=== PATIENT | female | born 1950 | race African-American/Black ===

== ENCOUNTER 2017-04-16 12:36 | Outpatient (CLI) | payer MEDICARE, OTHER ==
[2017-04-16 14:17] LABS: #Eosinphils 0.1 thou/uL (0.0-0.7); #Lymphocytes 2.1 thou/uL (1.20-3.40); #Monocytes 0.3 thou/uL (0.11-0.59); #Neutrophils 1.8 thou/uL (1.40-6.50); %Basophils 0.7 % (0.0-1.0); %Eosinophils 1.2 % (0.0-10.0); %Lymphocytes 48.9 % (21.0-51.0); %Monocytes 7.9 % (0.0-10.0); Hematocrit 42.6 % (36.0-47.0); Mean Platelet Volume 9.8 fL (7.4-10.4); Red Blood Cell (RBC) Count 4.48 mill/uL (4.20-5.40); White Blood Cell (WBC) Count 4.2 thou/uL (4.8-10.8)
[2017-04-16 14:23] LABS: PTT 30.6 SEC (22.9-36.1); Prothrombin Time 12.7 SEC (12.0-14.7)
[2017-04-16 14:24] LABS: Bilirubin Negative (Negative); Blood, Urine Negative (Negative); Glucose, Urine (Dipstick) Negative (Negative); Ketone, Urine Negative (Negative); Nitrite Positive (Negative); Protein, Urine (Dipstick) Negative (Neg-Trace); Urobilinogen 0.2 mg/dL (0.2-1.0)
[2017-04-16 14:36] LABS: Anion Gap 13 mmol/L (10-20); BUN (Urea Nitrogen) 8 mg/dL (9.8-20.1); Calc. Creatinine Clearance 0 mL/min (70-130); Calcium 9.8 mg/dL (7.8-10.44); Carbon Dioxide 30 mmol/L (23-31); Chloride 99 mmol/L (98-107); Estimated GFR-MDRD 83
[2017-04-16 14:37] LABS: Bacteria/HPF 4+ HPF (None Seen); Hyaline Casts/LPF 0-3 HYALINE CAST LPF (0-3 Hyaline); RBC/HPF 0-3 HPF (0-3)
--- NOTE | 2017-04-16 16:10 | RAD ---
CHEST PA AND LATERAL: 04/16/17 HISTORY: 66-year-old female, preoperative evaluation for surgery. COMPARISON: 02/09/11. FINDINGS: Heart size is normal. The lungs are clear. IMPRESSION: No acute intrathoracic disease. Stable from prior study. POS: [facility]
== END 2017-04-16 12:37 | disposition home or self-care (01) ==
LOC: LABBT 12:36
PROVIDERS: ATTEND Orthopaedic Surgery
DX: Z01.818 Encounter for other preprocedural examination (principal); M16.12 Unilateral primary osteoarthritis, left hip
CPT/HCPCS: 71020; 80048; 81001; 85025; 85610; 85730; 86850; 86900; 86901; 87081; 93005; 93010

== ENCOUNTER 2017-06-25 10:44 | Outpatient (CLI) | payer MEDICARE, OTHER ==
--- NOTE | 2017-06-25 11:37 | RAD ---
LEFT KNEE TWO VIEWS: History: Left knee pain. FINDINGS: There is mild joint space loss at the medial compartment with moderate degree of tricompartmental ost eophytosis. No acute fracture, dislocation, or fluid distention of the joint capsules are apparent. O sseous structures are demineralized. IMPRESSION: 1. Mild osteoarthritic changes left knee. 2. Osteoporosis. POS: [facility]
== END 2017-06-25 10:45 | disposition home or self-care (01) ==
LOC: SCSRAD 10:44
PROVIDERS: ATTEND Internal Medicine Rheumatology
DX: M17.12 Unilateral primary osteoarthritis, left knee (principal); M81.0 Age-related osteoporosis without current pathological fracture

== ENCOUNTER 2017-07-08 16:34 | Outpatient (CLI) | payer MEDICARE, OTHER | END 2017-07-08 16:35 | disposition home or self-care (01) | LOC: BICRAD 16:34 | PROVIDERS: ATTEND Internal Medicine | DX: R10.13 Epigastric pain (principal); R11.0 Nausea; R14.0 Abdominal distension (gaseous) | CPT/HCPCS: 36415; 74018; 80053; 83690; 85007; 85027; 85652; 86140 ==

== ENCOUNTER 2018-04-22 16:04 | Outpatient (CLI) | payer MEDICARE, OTHER | END 2018-04-22 16:05 | disposition home or self-care (01) | LOC: BICMAMMO 16:04 | PROVIDERS: ATTEND Internal Medicine | DX: Z12.31 Encounter for screening mammogram for malignant neoplasm of breast (principal); Z80.3 Family history of malignant neoplasm of breast | CPT/HCPCS: 77063; 77067 ==

== ENCOUNTER 2018-08-06 15:18 | Outpatient (CLI) | payer MEDICARE, OTHER ==
--- NOTE | 2018-08-06 17:06 | RAD ---
RIGHT ANKLE THREE VIEWS: 08/06/18 HISTORY: Right ankle pain and edema. FINDINGS: Ankle mortise and talar dome are intact. Prominent soft tissue swelling of the lateral malleolus. No acute fracture, dislocation. Pes planus is apparent on the lateral view, along with degenerative yuriy nges of the hindfoot and midfoot and plantar and Achilles enthesophytes at the posterior aspect of th e calcaneus. IMPRESSION: Prominent soft tissue swelling over the lateral malleolus. Cause is not evident. No acute osseous abn ormalities are demonstrated. Osteoarthritic changes of the ankle and hindfoot. Heel spurs. POS: [facility]
--- NOTE | 2018-08-06 17:11 | RAD ---
RIGHT FOOT THREE VIEWS: 08/06/18 HISTORY: Right foot pain. FINDINGS: Lisfranc joint alignment is anatomic. Prominent pes planus on the lateral view. Osteophytosis and brijesh nt space narrowing throughout the foot. Subchondral sclerosis at the base of the proximal phalanx big toe. Mild hallux valgus. No acute fracture, dislocation, or aggressive osseous erosions are apparent . Plantar and Achilles enthesophytes at the posterior aspect of the calcaneus. IMPRESSION: Osteoarthritic changes throughout the foot. Mild hallux valgus. Pes planus. Heel spurs. POS: [facility]
== END 2018-08-06 15:19 | disposition home or self-care (01) ==
LOC: BICRAD 15:18
PROVIDERS: ATTEND Internal Medicine
DX: M25.571 Pain in right ankle and joints of right foot (principal); I10 Essential (primary) hypertension; I87.2 Venous insufficiency (chronic) (peripheral); R53.83 Other fatigue; M19.071 Primary osteoarthritis, right ankle and foot; M20.11 Hallux valgus (acquired), right foot; M21.41 Flat foot [pes planus] (acquired), right foot; M77.31 Calcaneal spur, right foot
CPT/HCPCS: 36415; 80053; 83520; 84550; 85007; 85027; 85652; 86038; 86140; 86160; 86200; 86225

== ENCOUNTER 2018-12-25 21:01 | Inpatient (IN) | payer MEDICARE, OTHER ==
[2018-12-25 21:40] LABS: Eosinophils 1 % (0-10); Hemoglobin 14.3 g/dL (12.0-16.0); Lymphocytes 31 % (21-51); MDiff Complete? YES; Mean Corpuscular HGB CONC 34.4 g/dL (32.0-36.0); Mean Platelet Volume 14.1 fL (7.4-10.4); Monocytes 11 % (0-10); Neutrophil 57 % (42-75); Platelet Count 152 thou/uL (130-400); Platelet Morphology Comment Appears Adequate; RBC Distribution Width 13.3 % (11.5-14.5); Red Blood Cell (RBC) Count 4.79 mill/uL (4.20-5.40); White Blood Cell (WBC) Count 13.8 thou/uL (4.8-10.8)
--- NOTE | 2018-12-25 21:40 | RAD ---
PORTABLE CHEST ONE VIEW: 12/25/18 at 9:44 p.m. HISTORY: Left sided chest pain. FINDINGS: Comparison is made with exam of 04/09/13. The heart size is borderline. The lungs are expanded without lobar consolidation, pneumothoraces, fra nk pulmonary edema, or pleural effusions. There are degenerative changes in the spine. IMPRESSION: No acute process. POS: [facility]
[2018-12-25 21:43] LABS: ALT (SGPT) 22 U/L (8-55); AST (SGOT) 17 U/L (5-34); Alkaline Phosphatase 94 U/L (40-150); Anion Gap 18 mmol/L (10-20); BUN (Urea Nitrogen) 11 mg/dL (9.8-20.1); Bilirubin, Total 0.4 mg/dL (0.2-1.2); CK (CPK) 96 U/L (29-168); Calc. Creatinine Clearance 0 mL/min (70-130); Calcium 9.7 mg/dL (7.8-10.44); Carbon Dioxide 24 mmol/L (23-31); Chloride 98 mmol/L (98-107); Estimated GFR-MDRD 53; Globulin 4.2 g/dL (2.4-3.5); Glucose 121 mg/dL (80-115); Lipase 11 U/L (8-78); Potassium 3.9 mmol/L (3.5-5.1); Protein, Total 8.2 g/dL (6.0-8.3); Sodium 136 mmol/L (136-145)
[2018-12-25] MEDS ORDERED: Acetaminophen 500 MG TAB ONE (21:54)
[2018-12-25] MEDS ORDERED: Nitroglycerin 2% Ointment 1 INCH/1 GM Packet ONE (21:54)
[2018-12-25] MEDS ORDERED: Aspirin Chewable 81 MG TAB ONE (21:54)
[2018-12-25] MEDS ORDERED: Ondansetron PF 4 MG/2 ML Vial ONE (21:56)
[2018-12-25] MEDS ORDERED: Famotidine 20 MG TAB ONE (21:56)
[2018-12-25 22:12] LABS: Bilirubin Small (Negative); Blood, Urine Small (Negative); Clarity Cloudy (Clear); Glucose, Urine (Dipstick) Negative (Negative); Leukocyte Trace (Negative); Nitrite Negative (Negative); Protein, Urine (Dipstick) 100 mg/dL (Neg-Trace); Urobilinogen 0.2 mg/dL (Less than 2)
[2018-12-25 22:20] LABS: Bacteria/HPF 1+ HPF (None Seen); Mucous/LPF 2+ LPF (<2+); RBC/HPF 0-3 HPF (0-3); WBC/HPF 0-3 HPF (0-3)
[2018-12-25] MEDS ORDERED: Colchicine 0.6 MG TAB ONE (22:34)
[2018-12-26 00:45] LABS: Troponin I Less than 0.010 ng/mL (< 0.028)
[2018-12-26] MEDS ORDERED: Bacteriostatic Water 30 ML VIAL FS PRN (01:39)
[2018-12-26] MEDS ORDERED: methylPREDNISolone Sod Succ/PF 125 MG/2 ML VIAL IVP SCH (01:45)
[2018-12-26] MEDS ORDERED: Ondansetron ODT 4 MG TAB PO PRN (01:53)
[2018-12-26] MEDS ORDERED: Ondansetron PF 4 MG/2 ML Vial IVP PRN (01:53)
[2018-12-26] MEDS ORDERED: Buprenorphine Hcl [Belbuca] 75 MCG FS PRN (02:15)
[2018-12-26 05:09] LABS: Troponin I Less than 0.010 ng/mL (< 0.028)
[2018-12-26] MEDS: methylPREDNISolone Sod Succ 40 MG VIAL IVP SCH ×3 (05:53→18:21)
--- NOTE | 2018-12-26 07:48 | HP ---
PRIMARY CARE PHYSICIAN: Afsaneh Lackey MD. CHIEF COMPLAINT: Fever, chills, chest pain, and joint pain. HISTORY OF PRESENT ILLNESS: Ms. Londono is a pleasant 68-year-old female with past medical history of familial Mediterranean fever, hypertension, hyperlipidemia, rheumatoid arthritis, giant cell arteritis, iritis, pulmonary valve stenosis, status post replacement, who had presented to [facility] after being transferred from [facility] earlier today. She states that over the last 2 days, she has noticed a worsening fever along with some chest pain that is worse with deep breathing, some abdominal pain, nausea without vomiting and joint pain, which was localized to her wrists and knees. She states that she has been following with a truck railroad and bus motor mechanic in the area, Dr. Iban Gonzalez, and she has been taking her oral colchicine. However, as of late, this has not been working as well and the patient has had more flares. Upon arriving to [facility] ER, she was noted to have a fever as high as 103. She was given colchicine, aspirin, Tylenol, Levaquin and Zofran for her symptoms. Due to her chest pain, she was also given nitroglycerin and Pepcid. However, these did not seem to help. She was later transferred to [facility]. Upon arriving to the room, she was seen and examined. She had reported fever, chills, some mild chest pain, and some mild nausea without vomiting. She had denied any headache, blurred vision, dizziness, any shortness of breath, any change in stool or any swelling down her upper and lower extremities. She underwent a portable chest x-ray, which was found to be normal. White count was slightly elevated at 13.8, creatinine was bumped at 1.21 with an estimated GFR of 53. Lactic acid was normal at 1.7. Troponin was normal x2. Lipase was normal at 11 and TSH was also normal at 1.7. Urinalysis showed trace leukocyte esterase, 1+ bacteria, 2+ mucus and 7-10 squamous epithelial cells. However, patient denied any sort of urinary symptoms at this time. Urine was sent for culture and is pending at this time, blood cultures were also obtained. Third set of troponin is pending. She had remained in normal sinus rhythm on the monitor. REVIEW OF SYSTEMS: All other systems reviewed and found to be negative unless mentioned in HPI. PAST MEDICAL HISTORY: Hypertension, hyperlipidemia, familial Mediterranean fever, pulmonary valve stenosis, hiatal hernia, rheumatoid arthritis, osteoarthritis, history of giant cell arteritis and history of iritis. PAST SURGICAL HISTORY: Left hip replacement, right knee replacement, cholecystectomy, valvuloplasty for pulmonary valve stenosis. PSYCHIATRIC HISTORY: None. SOCIAL HISTORY: The patient denies any alcohol, tobacco, or illicit drug use. KNOWN ALLERGIES: No known drug allergies. CURRENT HOME MEDICATIONS: 1. Cimzia 40 mg subcutaneous q.14 days. 2. Nexium 40 mg p.o. b.i.d. 3. Potassium chloride 10 mEq p.o. daily. 4. Baclofen 10 mg oral b.i.d. 5. Buprenorphine 75 mcg as needed for pain. 6. Candesartan 32 mg oral daily. 7. Colchicine 0.6 mg p.o. b.i.d. 8. Diltiazem 240 mg p.o. daily. 9. Duloxetine 60 mg p.o. q.p.m. 10. Furosemide 40 mg p.o. daily. 11. Metoprolol 200 mg p.o. at bedtime. 12. Modafinil 200 mg p.o. one tablet in the morning and one tablet at noon. 13. Rosuvastatin 20 mg p.o. daily. 14. Tramadol 200 mg p.o. at bedtime. 15. Trazodone 50 mg p.o. at bedtime. PHYSICAL EXAMINATION: VITAL SIGNS: BP 132/64, pulse 69, respirations 18, temperature 98.5 degrees Fahrenheit, O2 saturations 98% on room air. GENERAL: The patient is awake, alert, and oriented x3. She is currently lying comfortably in bed and in no acute distress. HEENT: Atraumatic, normocephalic. Pupils are round and reactive to light. Extraocular muscles intact. Moist mucous membranes noted. NECK: Soft and supple. Trachea midline. CARDIOVASCULAR: Positive S1 and S2. Regular rate and rhythm. No murmur auscultated. RESPIRATORY: Clear to auscultation bilaterally. No wheezes, rales, or rhonchi. ABDOMEN: Soft, nontender. Bowel sounds present. MUSCULOSKELETAL: Strength 5+ bilaterally in upper and lower extremities. Moves all extremities equal. She does have possible slight swelling and erythema noted in bilateral wrists and right knee with some mild tenderness to palpation, normal range of motion. NEUROLOGIC: Cranial nerves 2 through 12 grossly intact. No focal deficits noted. Speech intact. Normal gait not assessed. SKIN: Warm, dry, and intact. Further changes noted above. PSYCHIATRIC: Good mood and affect. LABORATORY DATA: WBC 13.8, RBC 4.79, hemoglobin 14.3, hematocrit 41.7, platelets 152. Sodium 136, potassium 3.9, anion gap 18, BUN 11, creatinine 1.21, estimated GFR 53. Lactic acid 1.7. Troponin less than 0.010 x2. Lipase 11. TSH 1.7. Urinalysis shows trace leukocyte esterase, 7-10 squamous epithelial cells, 1+ bacteria, 2+ mucus, trace ketones, small blood, small bilirubin, 100 protein, otherwise unremarkable. DIAGNOSTIC IMAGING: Portable chest x-ray shows no acute process. ASSESSMENT AND PLAN: 1. Acute exacerbation of familial Mediterranean fever. The patient will be resumed on her home regimen at this time and we will add IV Solu-Medrol for further coverage. She also be treated with oral Tylenol as needed for fevers. She will likely need to follow up with her primary truck railroad and bus motor mechanic, Dr. Gonzalez upon discharge. 2. History of hypertension. The patient will be continued on her home regimen. 3. Hyperlipidemia. Continue home statin. 4. Leukocytosis. This could possibly be secondary to a reactive response. Urinalysis showed trace leukocyte esterase, 1+ bacteria, however, there were 7-10 squamous epithelial cells and patient is currently asymptomatic for any UTI symptoms at this time. Blood and urine cultures were sent and pending at this time. 5. Deep venous thrombosis and gastrointestinal prophylaxis. 6. Code status, full code. 7. Surrogate decision maker is her spouse, Ja. DISPOSITION: The patient will be placed on the observation unit to be monitored on telemetry. Her blood pressure and vital signs including temperatures will be monitored closely throughout hospital course. She will be started on IV Solu-Medrol and she will likely be transitioned to an oral prednisone taper and discharged home in the next 1 to 2 days to follow up with her primary truck railroad and bus motor mechanic. Job ID: [id number]
[2018-12-26] MEDS ORDERED: Rosuvastatin 20 MG TAB PO SCH (09:00)
[2018-12-26] MEDS: Baclofen 10 MG TAB PO SCH ×2 (09:06→20:34)
[2018-12-26] MEDS: Colchicine 0.6 MG TAB PO SCH ×2 (09:06→20:35)
[2018-12-26] MEDS: Modafinil 100 MG TAB PO SCH ×2 (09:06→12:38)
[2018-12-26] MEDS: Furosemide 40 MG TAB PO SCH (09:06)
[2018-12-26] MEDS: Enoxaparin Sodium 40 MG/0.4 ML SYRINGE SC SCH (09:08)
[2018-12-26] MEDS: Acetaminophen 325 MG TAB PO PRN ×2 (09:16→18:21)
[2018-12-26] MEDS ORDERED: ISOVUE-370 76%-LOCM 1 ML ONE (11:45)
--- NOTE | 2018-12-26 14:08 | PDOC.PN ---
- Subjective Encounter Start Date: 12/26/18 Encounter Start Time: 09:15 Subjective: feels better, no fever this am -: no abd pain or chest pain -: is eating breakfast - Objective Resuscitation Status - Order Detail: 12/26/18 01:53 Resuscitation Status Routine Co-Sign Provider: Resuscitation Status: FULL: Full Resuscitation MAR Reviewed: Yes Vital Signs & Weight: Vital Signs (12 hours) Temp Pulse Resp BP BP Pulse Ox 12/26/18 12:11 97.8 F 81 20 102/59 L 94 L 12/26/18 09:05 79 12/26/18 07:50 98.0 F 79 16 109/57 L 96 12/26/18 05:53 97.8 F 68 18 116/54 L 96 Weight Weight 212 lb 11.2 oz Result Diagrams: 12/25/18 21:17 12/25/18 21:17 Phys Exam - Physical Examination HEENT: PERRLA, moist MMs Neck: no JVD, supple Respiratory: no wheezing, no rales Cardiovascular: RRR, no significant murmur Gastrointestinal: soft, non-tender, positive bowel sounds Musculoskeletal: no edema, pulses present Neurological: non-focal, moves all 4 limbs Psychiatric: normal affect, A&O x 3 Dx/Plan (1) Chest pain Code(s): R07.9 - CHEST PAIN, UNSPECIFIED Status: Acute Qualifiers: Chest pain type: chest pain on breathing Qualified Code(s): R07.1 - Chest pain on breathing; R07.81 - Pleurodynia (2) h/o pulmonary valve valvuloplasty Status: Chronic (3) Dyslipidemia Code(s): E78.5 - HYPERLIPIDEMIA, UNSPECIFIED Status: Chronic (4) Obesity (BMI 30.0-34.9) Code(s): E66.9 - OBESITY, UNSPECIFIED Status: Chronic (5) HTN (hypertension) Code(s): I10 - ESSENTIAL (PRIMARY) HYPERTENSION Status: Chronic Qualifiers: Hypertension type: essential hypertension Qualified Code(s): I10 - Essential (primary) hypertension (6) Mediterranean fever Code(s): A23.9 - BRUCELLOSIS, UNSPECIFIED Status: Chronic Comment: Cont colchicine (7) SARBJIT (obstructive sleep apnea) Code(s): G47.33 - OBSTRUCTIVE SLEEP APNEA (ADULT) (PEDIATRIC) Status: Chronic Comment: nocturnal CPAP - Plan hemostable -: prelim blood and urine cs are -ve -: is on steroids now, colchicine, baclofen -: toprol high dose, candesartan, cardizem cd, lasix, crestor -: to ambulate in hallway as tolerated * . CT chest to r/o infiltrate dc plan in 24hrs. Review of Systems - Medications/Allergies Allergies/Adverse Reactions: Allergies Allergy/AdvReac Type Severity Reaction Status Date / Time No Known Allergies Allergy Verified 12/26/18 00:50 Medications: Current Medications Acetaminophen (Tylenol) 650 mg PO Q4H PRN PRN Reason: Headache/Fever/Mild Pain (1-3) Last Admin: 12/26/18 09:16 Dose: 650 mg Baclofen (Lioresal) 10 mg PO BID [facility] [place] Last Admin: 12/26/18 09:06 Dose: 10 mg Candesartan Cilexetil (Atacand) 32 mg PO DAILY [facility] Last Admin: 12/26/18 09:07 Dose: Not Given Colchicine (Colchicine) 0.6 mg PO BID [facility] Last Admin: 12/26/18 09:06 Dose: 0.6 mg Diltiazem HCl (Cardizem Cd) 240 mg PO DAILY [facility] Last Admin: 12/26/18 09:05 Dose: 240 mg Duloxetine HCl (Cymbalta) 60 mg PO QPM [facility] Enoxaparin Sodium (Lovenox) 40 mg SC 0900 [facility] Last Admin: 12/26/18 09:08 Dose: 40 mg Furosemide (Lasix) 40 mg PO DAILY [facility] Last Admin: 12/26/18 09:06 Dose: Not Given Methylprednisolone Sodium Succinate (Solu-Medrol) 40 mg IVP Q6HR [facility] Last Admin: 12/26/18 12:38 Dose: 40 mg Metoprolol Succinate (Toprol Xl) 200 mg PO HS [facility] Modafinil (Provigil) 200 mg PO 0900,1200 [facility] [place] Last Admin: 12/26/18 12:38 Dose: Not Given Ondansetron HCl (Zofran Odt) 4 mg PO Q6H PRN PRN Reason: Nausea/Vomiting Ondansetron HCl (Zofran) 4 mg IVP Q6H PRN PRN Reason: Nausea/Vomiting Buprenorphine Hcl [ (Belbuca] 75 Mcg) 0 each FS ASDIR PRN PRN Reason: Pain Tramadol Hcl [ Tramadol Hcl Er] 200 Mg 0 each PO HS [facility] Rosuvastatin Calcium (Crestor) 20 mg PO DAILY [facility] Last Admin: 12/26/18 09:05 Dose: 20 mg Sterile Water (Bacteriostatic Water) 1 ml FS PRN PRN PRN Reason: RECONSTITUTION Trazodone HCl (Desyrel) 50 mg PO HS [facility]
--- NOTE | 2018-12-26 15:50 | CT ---
CT angiogram of chest performed with intravenous contrast enhancement 3-D reconstructions HISTORY: Shortness of breath. COMPARISON: None. FINDINGS: There is a lingular infiltrate present. The right lung is clear. There is a small pleural-b ased 6 mm nodule within the right upper lobe which could represent a small pleural-based node.. No significant mediastinal or hilar adenopathy. The thoracic aorta is normal in caliber. The pulmonar y arteries are well-opacified there is no CT evidence for pulmonary embolus. Visualized liver parenchyma shows no focal findings. IMPRESSION: Lingular pneumonia. No evidence of pulmonary embolus.
[2018-12-26] MEDS: traZODone HCl 50 MG TAB PO SCH (20:35)
[2018-12-26] MEDS: DULoxetine 60 MG CAP PO SCH (20:35)
[2018-12-26] MEDS ORDERED: Tramadol Hcl [Tramadol Hcl Er] 200 MG PO SCH (21:00)
[2018-12-27] MEDS: methylPREDNISolone Sod Succ 40 MG VIAL IVP SCH ×2 (06:22)
[2018-12-27] MEDS: Baclofen 10 MG TAB PO SCH ×2 (08:45→20:51)
[2018-12-27] MEDS: Colchicine 0.6 MG TAB PO SCH ×2 (08:46→20:51)
[2018-12-27] MEDS: Furosemide 40 MG TAB PO SCH (08:46)
[2018-12-27] MEDS: Modafinil 100 MG TAB PO SCH ×2 (08:46→11:30)
[2018-12-27] MEDS: Enoxaparin Sodium 40 MG/0.4 ML SYRINGE SC SCH (08:46)
--- NOTE | 2018-12-27 12:39 | PDOC.PN ---
- Subjective Encounter Start Date: 12/27/18 Encounter Start Time: 09:00 Subjective: had sob overnight, none at present -: is amb in room -: no chest pain or palp - Objective Resuscitation Status - Order Detail: 12/26/18 01:53 Resuscitation Status Routine Co-Sign Provider: Resuscitation Status: FULL: Full Resuscitation MAR Reviewed: Yes Vital Signs & Weight: Vital Signs (12 hours) Temp Pulse Resp BP BP Pulse Ox 12/27/18 08:46 68 116/57 L 12/27/18 07:19 97.6 F 68 16 116/57 L 97 12/27/18 04:09 97.9 F 67 14 106/54 L 94 L Weight Weight 212 lb 11.2 oz I&O: 12/26/18 12/27/18 12/28/18 06:59 06:59 06:59 Intake Total 1460 400 Output Total 900 Balance 560 400 Result Diagrams: 12/25/18 21:17 12/25/18 21:17 Phys Exam - Physical Examination HEENT: PERRLA, moist MMs Neck: no JVD, supple Respiratory: no wheezing, no rales Cardiovascular: RRR, no significant murmur Gastrointestinal: soft, non-tender, positive bowel sounds Musculoskeletal: no edema, pulses present Neurological: non-focal, moves all 4 limbs Psychiatric: normal affect, A&O x 3 Dx/Plan (1) PNA (pneumonia) Code(s): J18.9 - PNEUMONIA, UNSPECIFIED ORGANISM Status: Acute Qualifiers: Pneumonia type: due to unspecified organism Laterality: left Lung location: upper lobe of lung Qualified Code(s): J18.1 - Lobar pneumonia, unspecified organism (2) Chest pain Code(s): R07.9 - CHEST PAIN, UNSPECIFIED Status: Acute Qualifiers: Chest pain type: chest pain on breathing Qualified Code(s): R07.1 - Chest pain on breathing; R07.81 - Pleurodynia (3) h/o pulmonary valve valvuloplasty Status: Chronic (4) Dyslipidemia Code(s): E78.5 - HYPERLIPIDEMIA, UNSPECIFIED Status: Chronic (5) Obesity (BMI 30.0-34.9) Code(s): E66.9 - OBESITY, UNSPECIFIED Status: Chronic (6) HTN (hypertension) Code(s): I10 - ESSENTIAL (PRIMARY) HYPERTENSION Status: Chronic Qualifiers: Hypertension type: essential hypertension Qualified Code(s): I10 - Essential (primary) hypertension (7) Mediterranean fever Code(s): A23.9 - BRUCELLOSIS, UNSPECIFIED Status: Chronic Comment: Cont colchicine (8) SARBJIT (obstructive sleep apnea) Code(s): G47.33 - OBSTRUCTIVE SLEEP APNEA (ADULT) (PEDIATRIC) Status: Chronic Comment: nocturnal CPAP - Plan levaquin, nebs, dc steroids -: d/w -: continue toprol, cardizem, lasix, candesartan, crestor -: may dc baclofen, continue cymbalta, modafinil -: hemostable * . Review of Systems - Medications/Allergies Allergies/Adverse Reactions: Allergies Allergy/AdvReac Type Severity Reaction Status Date / Time No Known Allergies Allergy Verified 12/26/18 00:50 Medications: Current Medications Acetaminophen (Tylenol) 650 mg PO Q4H PRN PRN Reason: Headache/Fever/Mild Pain (1-3) Last Admin: 12/26/18 18:21 Dose: 650 mg Albuterol/Ipratropium (Duoneb) 3 ml NEB [id number] PRN PRN Reason: SOB &/or Wheezing Baclofen (Lioresal) 10 mg PO BID [facility] Last Admin: 12/27/18 08:45 Dose: 10 mg Candesartan Cilexetil (Atacand) 32 mg PO DAILY [facility] Last Admin: 12/27/18 08:45 Dose: 32 mg Colchicine (Colchicine) 0.6 mg PO BID [facility] Last Admin: 12/27/18 08:46 Dose: 0.6 mg Diltiazem HCl (Cardizem Cd) 240 mg PO DAILY [facility] Last Admin: 12/27/18 08:46 Dose: 240 mg Duloxetine HCl (Cymbalta) 60 mg PO QPM [facility] Last Admin: 12/26/18 20:35 Dose: 60 mg Enoxaparin Sodium (Lovenox) 40 mg SC 0900 [facility] Last Admin: 12/27/18 08:46 Dose: 40 mg Furosemide (Lasix) 40 mg PO DAILY [facility] Last Admin: 12/27/18 08:46 Dose: 40 mg Levofloxacin 500 mg/ Device 100 mls @ 100 mls/hr IVPB Q24HR [facility] Last Admin: 12/27/18 08:55 Dose: 100 mls Metoprolol Succinate (Toprol Xl) 200 mg PO HS [facility] Last Admin: 12/26/18 20:34 Dose: 200 mg Modafinil (Provigil) 200 mg PO 0900,1200 [facility] Last Admin: 12/27/18 11:30 Dose: 200 mg Ondansetron HCl (Zofran Odt) 4 mg PO Q6H PRN PRN Reason: Nausea/Vomiting Ondansetron HCl (Zofran) 4 mg IVP Q6H PRN PRN Reason: Nausea/Vomiting Last Admin: 12/27/18 11:31 Dose: 4 mg Pantoprazole Sodium (Protonix) 40 mg PO BID [facility] Last Admin: 12/27/18 08:45 Dose: Not Given Buprenorphine Hcl [ (Belbuca] 75 Mcg) 0 each FS ASDIR PRN PRN Reason: Pain Tramadol Hcl [ Tramadol Hcl Er] 200 Mg 0 each PO HS [facility] Rosuvastatin Calcium (Crestor) 20 mg PO HS [facility] Sodium Chloride (Flush - Normal Saline) 10 ml IVF Q12HR [facility] Last Admin: 12/27/18 08:46 Dose: 10 ml Sodium Chloride (Flush - Normal Saline) 10 ml IVF PRN PRN PRN Reason: Saline Flush Sterile Water (Bacteriostatic Water) 1 ml FS PRN PRN PRN Reason: RECONSTITUTION Trazodone HCl (Desyrel) 50 mg PO HS [facility] Last Admin: 12/26/18 20:35 Dose: 50 mg
--- NOTE | 2018-12-27 18:51 | CON ---
DATE OF CONSULTATION: 12/27/2018 CONSULTING PHYSICIAN: Dr. Xiao. REASON FOR CONSULTATION: Pneumonia. HISTORY OF PRESENT ILLNESS: Ms. Londono is a 68-year-old female, who presented to the hospital with a 3-day history of chest pain, fevers, difficulty breathing, and some abdominal pain. She actually carries a diagnosis of familial Mediterranean fever and takes colchicine for that. On this particular admission, she had a fever as high as 103. She had a CT of the chest demonstrating a peripheral lingular infiltrate on the left. She has been started on antibiotics and says she feels somewhat better. The fever has dissipated. PAST MEDICAL HISTORY: 1. Hypertension. 2. Hyperlipidemia. 3. Familial Mediterranean fever. 4. Pulmonary valve stenosis. 5. Hiatal hernia. 6. Rheumatoid arthritis. 7. Osteoarthritis. 8. Giant cell arteritis. 9. Iritis. PAST SURGICAL HISTORY: 1. Left hip replacement. 2. Knee replacement. 3. Cholecystectomy. 4. Valvuloplasty for pulmonary valve stenosis. SOCIAL HISTORY: Nonsmoker. Does not consume alcohol. Does not use illicit drugs. ALLERGIES: NONE. MEDICATIONS: Medications prior to admission: 1. Cimzia 40 mg subcutaneously every 14 days. 2. Nexium 40 mg b.i.d. 3. Potassium chloride 10 mEq daily. 4. Baclofen 10 mg b.i.d. 5. Buprenorphine 75 mcg as needed for pain. 6. Candesartan 32 mg daily. 7. Colchicine 0.6 mg b.i.d. 8. Diltiazem 240 mg daily. 9. Duloxetine 60 mg daily. 10. Furosemide 40 mg daily. 11. Metoprolol 200 mg at night. 12. Modafinil 200 mg in the morning and one at noon. 13. Rosuvastatin 20 mg daily. 14. Tramadol 200 mg nightly. 15. Trazodone 50 mg daily. Current inpatient medications were reviewed, see chart. Additionally, she has been placed on Levaquin. REVIEW OF SYSTEMS: Remarkable for the chest pain, myalgias, and joint swelling in the hands. Otherwise, negative. PHYSICAL EXAMINATION: VITAL SIGNS: Temperature 97.6, pulse 68, blood pressure 116/57, O2 saturation 97% on room air. GENERAL: She is awake, alert, and in no distress. HEENT: Unremarkable. NECK: No adenopathy, JVD, or bruits. LUNGS: Clear without wheezing or rhonchi. CARDIAC: S1 and S2, regular without audible murmur. ABDOMEN: Soft. Slightly tender to deep palpation. EXTREMITIES: She has some swelling over her dorsum of right hand. LABORATORY DATA: White blood cell count 13.8, hematocrit 41, platelet count 152. Sodium 136, BUN 11, creatinine 1.2, glucose 121. I reviewed her CT scan. ASSESSMENT: Clinical picture is probably consistent with familial Mediterranean fever with exacerbation. The x-ray could be abnormal because of that or could be abnormal because of pneumonia, so it is reasonable to go ahead and cover her with antibiotics. RECOMMENDATIONS: In addition to the antibiotics and the colchicine, I would encourage her to get up and move around. I do not think she is that far from hospital discharge. I would complete a total of 7 days of antibiotics. Job ID: [id number]
[2018-12-27] MEDS: DULoxetine 60 MG CAP PO SCH (20:51)
[2018-12-27] MEDS: Rosuvastatin 20 MG TAB PO SCH (20:51)
[2018-12-27] MEDS: traZODone HCl 50 MG TAB PO SCH (20:51)
[2018-12-28] MEDS: Colchicine 0.6 MG TAB PO SCH ×2 (07:47→20:22)
[2018-12-28] MEDS: Enoxaparin Sodium 40 MG/0.4 ML SYRINGE SC SCH (07:47)
[2018-12-28] MEDS: Baclofen 10 MG TAB PO SCH ×2 (07:47→20:22)
[2018-12-28] MEDS: Furosemide 40 MG TAB PO SCH (07:47)
[2018-12-28] MEDS: Modafinil 100 MG TAB PO SCH ×2 (09:53→11:35)
[2018-12-28 10:38] LABS: Hemoglobin 13.7 g/dL (12.0-16.0); Mean Corpuscular HGB CONC 33.4 g/dL (32.0-36.0); Mean Corpuscular Hemoglobin 30.8 pg (27.0-31.0); Mean Corpuscular Volume 92.3 fL (78.0-98.0); Mean Platelet Volume 8.9 fL (7.4-10.4); Platelet Count 227 thou/uL (130-400); RBC Distribution Width 13.4 % (11.5-14.5); Red Blood Cell (RBC) Count 4.46 mill/uL (4.20-5.40); White Blood Cell (WBC) Count 18.2 thou/uL (4.8-10.8)
[2018-12-28 11:22] LABS: Lymphocytes 4 % (21-51); MDiff Complete? YES; Monocytes 11 % (0-10); Neutrophil 83 % (42-75); Platelet Morphology Comment Appears Adequate; RBC Morphology Normal; Reactive Lymphocytes 2 % (0-10)
[2018-12-28 11:24] LABS: Anion Gap 20 mmol/L (10-20); BUN (Urea Nitrogen) 29 mg/dL (9.8-20.1); Calc. Creatinine Clearance 68 mL/min (70-130); Calcium 9.3 mg/dL (7.8-10.44); Carbon Dioxide 19 mmol/L (23-31); Chloride 105 mmol/L (98-107); Estimated GFR-MDRD 54; Glucose 115 mg/dL (80-115); HIV (1/2) Antibody/Antigen Non-Reactive (NonReactive); HIV 1/2 INDEX 0.09 S/CO (<1.00); Potassium 4.1 mmol/L (3.5-5.1); Sodium 140 mmol/L (136-145)
--- NOTE | 2018-12-28 11:34 | PDOC.PN ---
- Subjective Encounter Start Date: 12/28/18 Encounter Start Time: 10:20 Subjective: sob is better, is able to amb in room -: has had off and on candidiasis, recently completed fluconazole course -: says fluconazole has not helped much, is asking if her pna is fungal? - Objective Resuscitation Status - Order Detail: 12/26/18 01:53 Resuscitation Status Routine Co-Sign Provider: Resuscitation Status: FULL: Full Resuscitation MAR Reviewed: Yes Vital Signs & Weight: Vital Signs (12 hours) Temp Pulse Resp BP Pulse Ox 12/28/18 09:53 69 12/28/18 08:00 97 12/28/18 07:09 97.6 F 69 17 115/65 93 L 12/28/18 05:10 98.1 F 73 18 107/62 97 Weight Weight 212 lb 11.2 oz I&O: 12/27/18 12/28/18 12/29/18 06:59 06:59 06:59 Intake Total 1460 940 240 Output Total 900 Balance 560 940 240 Result Diagrams: 12/28/18 10:20 12/28/18 10:20 Phys Exam - Physical Examination HEENT: PERRLA, moist MMs Neck: no JVD, supple Respiratory: no wheezing, no rales Cardiovascular: RRR, no significant murmur Gastrointestinal: soft, non-tender, positive bowel sounds Musculoskeletal: no edema, pulses present Neurological: non-focal, moves all 4 limbs Psychiatric: normal affect, A&O x 3 Dx/Plan (1) PNA (pneumonia) Code(s): J18.9 - PNEUMONIA, UNSPECIFIED ORGANISM Status: Acute Qualifiers: Pneumonia type: due to unspecified organism Laterality: left Lung location: upper lobe of lung Qualified Code(s): J18.1 - Lobar pneumonia, unspecified organism (2) Chest pain Code(s): R07.9 - CHEST PAIN, UNSPECIFIED Status: Resolved Qualifiers: Chest pain type: chest pain on breathing Qualified Code(s): R07.1 - Chest pain on breathing; R07.81 - Pleurodynia (3) h/o pulmonary valve valvuloplasty Status: Chronic (4) Dyslipidemia Code(s): E78.5 - HYPERLIPIDEMIA, UNSPECIFIED Status: Chronic (5) Obesity (BMI 30.0-34.9) Code(s): E66.9 - OBESITY, UNSPECIFIED Status: Chronic (6) HTN (hypertension) Code(s): I10 - ESSENTIAL (PRIMARY) HYPERTENSION Status: Chronic Qualifiers: Hypertension type: essential hypertension Qualified Code(s): I10 - Essential (primary) hypertension (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 -: ID consult if ok with , await his opinion if pna is related to it -: ?bronch to confirm if she has lower airway fungal inf -: has tried fluconazole before and says its not worked for her * . HIV is -ve continue high dose toprol xl, cardizem cd, candesartan, crestor, cymbalta, baclofen Nebs qid. TO ambulate in hallway as tolerated She might need to clean her cpap thoroughly in view of thrush/airway? Review of Systems - Medications/Allergies Allergies/Adverse Reactions: Allergies Allergy/AdvReac Type Severity Reaction Status Date / Time No Known Allergies Allergy Verified 12/26/18 00:50 Medications: Current Medications Acetaminophen (Tylenol) 650 mg PO Q4H PRN PRN Reason: Headache/Fever/Mild Pain (1-3) Last Admin: 12/26/18 18:21 Dose: 650 mg Albuterol/Ipratropium (Duoneb) 3 ml NEB Q6H PRN PRN Reason: SOB &/or Wheezing Baclofen (Lioresal) 10 mg PO BID [facility] Last Admin: 12/28/18 07:47 Dose: 10 mg Candesartan Cilexetil (Atacand) 32 mg PO DAILY [facility] Last Admin: 12/28/18 09:53 Dose: 32 mg Colchicine (Colchicine) 0.6 mg PO BID [facility] Last Admin: 12/28/18 07:47 Dose: 0.6 mg Diltiazem HCl (Cardizem Cd) 240 mg PO DAILY [facility] Last Admin: 12/28/18 09:53 Dose: 240 mg Duloxetine HCl (Cymbalta) 60 mg PO QPM [facility] Last Admin: 12/27/18 20:51 Dose: 60 mg Enoxaparin Sodium (Lovenox) 40 mg SC 0900 [facility] Last Admin: 12/28/18 07:47 Dose: 40 mg Fluconazole (Diflucan) 200 mg PO DAILY [facility] Stop: 12/31/18 12:01 Furosemide (Lasix) 40 mg PO DAILY [facility] Last Admin: 12/28/18 07:47 Dose: 40 mg Levofloxacin (Levaquin) 500 mg PO 0600 [facility] Metoprolol Succinate (Toprol Xl) 200 mg PO HS [facility] Last Admin: 12/27/18 20:51 Dose: 200 mg Modafinil (Provigil) 200 mg PO 0900,1200 [facility] Last Admin: 12/28/18 09:53 Dose: 200 mg Ondansetron HCl (Zofran Odt) 4 mg PO Q6H PRN PRN Reason: Nausea/Vomiting Ondansetron HCl (Zofran) 4 mg IVP Q6H PRN PRN Reason: Nausea/Vomiting Last Admin: 12/27/18 11:31 Dose: 4 mg Pantoprazole Sodium (Protonix) 40 mg PO BID [facility] Last Admin: 12/28/18 07:47 Dose: 40 mg Buprenorphine Hcl [ (Belbuca] 75 Mcg) 0 each FS ASDIR PRN PRN Reason: Pain Tramadol Hcl [ Tramadol Hcl Er] 200 Mg 0 each PO HS [facility] Rosuvastatin Calcium (Crestor) 20 mg PO HS [facility] Last Admin: 12/27/18 20:51 Dose: 20 mg Sodium Chloride (Flush - Normal Saline) 10 ml IVF Q12HR [facility] Last Admin: 12/28/18 07:48 Dose: 10 ml Sodium Chloride (Flush - Normal Saline) 10 ml IVF PRN PRN PRN Reason: Saline Flush Sterile Water (Bacteriostatic Water) 1 ml FS PRN PRN PRN Reason: RECONSTITUTION Trazodone HCl (Desyrel) 50 mg PO [facility] Last Admin: 12/27/18 20:51 Dose: 50 mg
--- NOTE | 2018-12-28 11:39 | PRG ---
DATE OF SERVICE: SUBJECTIVE: Ms. Londono is doing better. She had no acute complaints other than thrush. OBJECTIVE: VITAL SIGNS: On exam, temperature is 97.6, pulse 69, respirations 17, O2 saturation 97% on room air, blood pressure 115/65. HEENT: Unremarkable. NECK: No adenopathy or JVD. LUNGS: Fairly clear anteriorly. CARDIAC: S1, S2. Regular. ABDOMEN: Soft, nontender. EXTREMITIES: No edema. ASSESSMENT: 1. Exacerbation of familial Mediterranean fever. 2. Question pneumonia. PLAN: 1. I think it is probably safe to switch her over to oral antibiotic therapy. 2. Add Diflucan for thrush. Job ID: [id number]
[2018-12-28] MEDS ORDERED: Fluconazole 100 MG TAB PO SCH (12:00)
[2018-12-28] MEDS: traZODone HCl 50 MG TAB PO SCH (20:22)
[2018-12-28] MEDS: Rosuvastatin 20 MG TAB PO SCH (20:22)
[2018-12-28] MEDS: DULoxetine 60 MG CAP PO SCH (20:22)
[2018-12-29] MEDS: Baclofen 10 MG TAB PO SCH (08:11)
[2018-12-29] MEDS: Colchicine 0.6 MG TAB PO SCH (08:11)
[2018-12-29] MEDS: Enoxaparin Sodium 40 MG/0.4 ML SYRINGE SC SCH (08:18)
[2018-12-29] MEDS: Modafinil 100 MG TAB PO SCH (09:13)
[2018-12-29 11:13] VITALS: BP 119/78; TEMP 98.6
[2018-12-30] MEDS ORDERED: Losartan 25 MG TAB PO SCH (09:00)
--- NOTE | 2018-12-30 14:52 | DIS ---
DATE OF ADMISSION: 12/27/2018 DATE OF DISCHARGE: 12/29/2018 DICTATED DATE OF ADMISSION: 12/26/2018. DISCHARGE DISPOSITION: Home. PRIMARY DISCHARGE DIAGNOSES: Left upper lobe pneumonia. Pleuritic chest pain. SECONDARY DISCHARGE DIAGNOSES: History of pulmonary valve valvuloplasty, dyslipidemia, obesity, history of Mediterranean fever in the past, history of rheumatoid arthritis, obstructive sleep apnea, hypertension. PROCEDURES DONE DURING HOSPITALIZATION: The patient had CT angio chest done, which showed lingular pneumonia with no evidence of pulmonary embolus. Blood cultures x2, no growth. She had a white count of 18 on the 14th, H and H 13 and 41, and platelet count 227. TSH 1.71. Troponin x3 negative. Discharge BUN and creatinine 29 and 1.1. HIV 1 and 2 antigen and antibody nonreactive. DISCHARGE MEDICATIONS: 1. Baclofen 10 mg twice daily. 2. Buprenorphine 75 mcg as before. 3. Cimzia 400 mg subcu once two weeks for rheumatoid arthritis. 4. Colchicine 0.6 mg twice daily for history of Mediterranean fever. 5. Cardizem CD 240 mg daily. 6. Cymbalta 60 mg p.o. q.p.m. 7. Nexium 40 mg twice daily. 8. Toprol-XL 200 mg p.o. at bedtime. 9. Modafinil p.r.n. 10. Crestor 20 mg p.o. at bedtime. 11. Ultram p.r.n. 12. Trazodone 50 mg p.o. at bedtime. 13. Albuterol inhaler q.6 hourly p.r.n. 14. Atacand 16 mg p.o. daily. 15. Fluconazole 200 mg p.o. daily for 5 days. 16. Levaquin 500 mg p.o. daily for 6 days. ALLERGIES: NO KNOWN DRUG ALLERGIES. INPATIENT CONSULT: Dr. Betts for Pulmonology. DISCHARGE PLAN: The patient to follow up with primary care physician in [address] Betts in 4 weeks. BRIEF COURSE DURING HOSPITALIZATION: The patient initially came to ER with complaints of pleuritic chest pain, fever, chills. Initial CT angio chest done showed findings of lingular left upper lobe pneumonia. She was placed on broad-spectrum IV antibiotics and blood cultures were obtained. She is immunosuppressed as she is on Certolizumab for rheumatoid arthritis. She also had chronic history of Mediterranean fever and was on colchicine for the same. In view of her complicated history, the patient has had consultation with Dr. Betts. She has responded well to antibiotics. The patient also complained of having thrush. In view of this, she was placed on both Diflucan and Levaquin. She needs to continue the complete course as prescribed. She needs to have a followup with her primary care physician in 1 week. She is hemodynamically stable, ambulating and eating well prior to discharge. Please note, I have seen and examined the patient on the day of discharge. Job ID: [id number]
--- NOTE | 2018-12-31 14:55 | EKG ---
Test Reason : CHEST PAIN Blood Pressure : / mmHG Vent. Rate : 090 BPM Atrial Rate : 090 BPM P-R Int : 174 ms QRS Dur : 074 ms QT Int : 330 ms P-R-T Axes : 056 014 029 degrees QTc Int : 403 ms Normal sinus rhythm Moderate voltage criteria for LVH, may be normal variant Borderline ECG Confirmed by SKIP SETH DO ([id number]), commissioning editor SHAILESH KEENE ([id number]) on 12/31/2018 2:55:43 PM Referred By: Confirmed By:SKIP SETH DO
== END 2018-12-29 11:06 | disposition home or self-care (01) | DRG 545 ==
LOC: SCSER 21:01 → ERHOLD 12-26 00:02 → 2SW 12-26 00:41 → OBSVTOIN 12-27 09:45 → T4-B 12-27 18:13
PROVIDERS: ADMIT Internal Medicine; ATTEND Internal Medicine
DX: M04.1 Periodic fever syndromes (principal); J18.1 Lobar pneumonia, unspecified organism; B37.0 Candidal stomatitis; I10 Essential (primary) hypertension; E78.5 Hyperlipidemia, unspecified; M06.9 Rheumatoid arthritis, unspecified; M31.6 Other giant cell arteritis; M19.90 Unspecified osteoarthritis, unspecified site; Z96.642 Presence of left artificial hip joint; Z96.651 Presence of right artificial knee joint; E66.9 Obesity, unspecified; G47.33 Obstructive sleep apnea (adult) (pediatric); Z95.2 Presence of prosthetic heart valve; Z90.49 Acquired absence of other specified parts of digestive tract; Z68.33 Body mass index [BMI] 33.0-33.9, adult
CPT/HCPCS: 36415; 71045; 71275; 80048; 80053; 81003; 81015; 82550; 83605; 83690; 84443; 84484; 85025; 87040; 87086; 87389; 93005; 96365; 96375; J1650; J1956; J2405; J2920; J2930; Q9966

== ENCOUNTER 2019-02-03 16:40 | Outpatient (CLI) | payer MEDICARE, OTHER ==
--- NOTE | 2019-02-03 16:55 | RAD ---
EXAM: Chest Two Views 02/03/2019 4:52 PM HISTORY: Left-sided chest pain COMPARISON: April 16, 2017 FINDINGS: Heart: Normal in size and contour. Pulmonary vessels: Normal. Costophrenic angles: Clear. Lungs: No confluent pneumonia, overt edema, pleural effusion, or other acute process. Pneumothorax: None. Osseous structures:Intact. There is scattered degenerative and osteoarthritic change present. Additional findings: None. IMPRESSION: No significant acute intrathoracic disease.
== END 2019-02-03 16:41 | disposition home or self-care (01) ==
LOC: BICRAD 16:40
PROVIDERS: ATTEND Internal Medicine Critical Care Medicine
DX: R06.00 Dyspnea, unspecified (principal)
CPT/HCPCS: 71046

== ENCOUNTER 2019-02-23 16:14 | Outpatient (CLI) | payer MEDICARE, OTHER ==
--- NOTE | 2019-02-23 16:40 | RAD ---
Exam:Right hip 2 view HISTORY: Pain COMPARISON: None FINDINGS: Mild loss of joint space height. Contour of the femoral head is maintained. No fracture. Vi sualized bony pelvis is intact. IMPRESSION: No fracture. Mild loss of joint space height.
--- NOTE | 2019-02-23 16:42 | RAD ---
Exam:Left hip 2 views HISTORY: Pain. COMPARISON: 04/23/2017 FINDINGS: No fracture. Hypertrophic bone formation at the greater trochanter is noted. There does samuel ear to be some loosening involving the stem of the arthroplasty. IMPRESSION: 1. No fracture 2. Lucency at the stem of the left hip arthroplasty, suggesting loosening. Correlate clinically. CODE T
== END 2019-02-23 16:15 | disposition home or self-care (01) ==
LOC: RAD 16:14 → BICRAD 16:15
PROVIDERS: ATTEND Nurse Practitioner
DX: M25.551 Pain in right hip (principal); M25.552 Pain in left hip; Z96.642 Presence of left artificial hip joint

== ENCOUNTER 2019-03-13 15:39 | Outpatient (CLI) | payer MEDICARE, OTHER ==
--- NOTE | 2019-03-13 17:25 | MRI ---
MR the right hip without contrast INDICATION: Right hip pain since December 2018 Comparison: Prior right hip radiograph dated February 23, 2019 FINDINGS: There is mild tendinosis of the right gluteus minimus and medius musculature. The right rec tus femoris and hamstring origin appears within normal limits. No iliopsoas bursitis is evident. There is a subchondral insufficiency fracture involving the posterior superior aspect of the acetabul um, best seen on image 16 of series 8, with some surrounding marrow and periosteal edema. There is moderate degenerative arthrosis of the right hip. There is susceptibility artifact from the patient's left total hip prosthesis. Visualized intrapelvic contents appear within normal limits. No additional marrow signal abnormality is grossly evident. There is mild degenerative change involving the lumbar spine. IMPRESSION: Nondisplaced subchondral insufficiency fracture involving the posterior superior right ac etabulum. There is surrounding bone marrow and periosteal edema. There is moderate osteoarthrosis of the right hip. There is mild tendinosis of the right gluteus minimus and medius tendons. Transcribed Date/Time: 03/13/2019 6:07 PM
== END 2019-03-13 15:40 | disposition home or self-care (01) ==
LOC: SCSMRI 15:39
PROVIDERS: ATTEND Orthopaedic Surgery
DX: M25.551 Pain in right hip (principal); M16.11 Unilateral primary osteoarthritis, right hip; R60.0 Localized edema; M84.459A Pathological fracture, hip, unspecified, initial encounter for fracture; M25.851 Other specified joint disorders, right hip

== ENCOUNTER 2019-05-07 14:14 | Outpatient (CLI) | payer MEDICARE, OTHER | END 2019-05-07 14:15 | disposition home or self-care (01) | LOC: CP 14:14 | PROVIDERS: ATTEND Internal Medicine Critical Care Medicine | DX: R06.00 Dyspnea, unspecified (principal); G47.33 Obstructive sleep apnea (adult) (pediatric) | CPT/HCPCS: 94060; 94727; 94729 ==

== ENCOUNTER 2019-05-11 09:00 | Outpatient (CLI) | payer MEDICARE, OTHER ==
--- NOTE | 2019-05-11 11:21 | MMO ---
Bilateral MAMMO Bilat Screen [facility]. CLINICAL HISTORY: Patient is 68 years old and is seen for screening. The patient has no personal history of cancer. The patient has a history of bilateral Excisional Biopsy in ? - Pt had 3 bx all benign. Pt can not remember when. VIEWS: The views performed were: bilateral craniocaudal with tomosynthesis and bilateral mediolateral oblique with tomosynthesis. FILMS COMPARED: The present examination has been compared to prior imaging studies performed at [facility] on 09/20/2014, 03/12/2016, 03/29/2017 and 04/22/2018. This study has been interpreted with the assistance of computer-aided detection. MAMMOGRAM FINDINGS: The breasts are almost entirely fat. There are no suspicious masses, suspicious calcifications, or new areas of architectural distortion. IMPRESSION: THERE IS NO MAMMOGRAPHIC EVIDENCE OF MALIGNANCY. A ROUTINE FOLLOW-UP MAMMOGRAM IN 1 YEAR IS RECOMMENDED. THE RESULTS OF THIS EXAM WERE SENT TO THE PATIENT. ACR BI-RADS Category 1 - Negative MAMMOGRAPHY NOTE: 1. A negative mammogram report should not delay a biopsy if a dominant of clinically suspicious mass is present. 2. Approximately 10% to 15% of breast cancers are not detected by mammography. 3. Adenosis and dense breasts may obscure an underlying neoplasm. Reported by: MAIKEL BARRON MD Electonically Signed: [id number]
== END 2019-05-11 09:01 | disposition home or self-care (01) ==
LOC: BICMAMMO 09:00
PROVIDERS: ATTEND Internal Medicine
DX: Z12.31 Encounter for screening mammogram for malignant neoplasm of breast (principal)
CPT/HCPCS: 77063; 77067

== ENCOUNTER 2019-11-17 13:45 | Outpatient (CLI) | payer MEDICARE, OTHER ==
--- NOTE | 2019-11-17 15:41 | MRI ---
MRI LUMBAR SPINE NONCONTRAST: DATE: 11/17/2019 HISTORY: 69-year-old female with lumbar spondylosis and lumbar radiculopathy. COMPARISON: 06/18/2008 FINDINGS: There are 5 lumbar-type vertebrae. There is a new finding of mild anterior wedge compression loss of height of approximately 10-25%, with associated deep Schmorl's node at superior endplate, of L1. There is no bone marrow edema associated with this, and therefore this is old. It occurred sometime a fter the previous MRI of 06/18/2008. The rest of the vertebral body heights are maintained. No major bone marrow signal abnormality. No high-grade disc space narrowing at any level. Conus medullaris ter minates at L1. T12-L1:Minimal disc bulge. Otherwise normal. L1-2:Minimal disc bulge. Otherwise normal. L2-3:Mild disc bulge mild to moderate right lateral facet DJD, right greater than left encroaches upo n posterior aspect of spinal canal. Mild central spinal canal stenosis. No significant neural foraminal stenosis. L3-4:Mild disc bulge. No significant neural foraminal stenosis. Mild to moderate ligamentum flavum th ickening. Mild to moderate bilateral facet DJD. Very mild central spinal canal stenosis. Posterior epidural fat pad. Mild thecal sac stenosis. L4-5:Diffuse disc bulge, and possibly superimposed small central and bilateral paracentral broad-base d shallow disc herniation with slight superior migration, indents the ventral aspect of thecal sac. Moderate ligamentum flavum thickening. Mild to moderate bilateral neural foraminal stenosis. Mild angela tral spinal canal stenosis. No significant neural foraminal stenosis. L5-S1:Minimal disc bulge. No central or neural foraminal stenosis. Mild to moderate right facet DJD. Mild left facet DJD. All of the above described degenerative changes have progressed since 2008. IMPRESSION: 1) predominantly mild lumbar spondylosis with multilevel mild degenerative disc disease, and several levels of mild to moderate facet osteoarthrosis. 2) no high-grade central spinal canal stenosis, high-grade neural foraminal stenosis, or marleni nerve root compression, at any level. 3) old mild compression fracture of L1.
== END 2019-11-17 13:46 | disposition home or self-care (01) ==
LOC: BICMRI 13:45
PROVIDERS: ATTEND Internal Medicine Rheumatology
DX: M47.27 Other spondylosis with radiculopathy, lumbosacral region (principal); M47.26 Other spondylosis with radiculopathy, lumbar region; M51.16 Intervertebral disc disorders with radiculopathy, lumbar region
CPT/HCPCS: 72148

== ENCOUNTER 2020-11-24 11:33 | Outpatient (CLI) | payer MEDICARE, OTHER | END 2020-11-24 11:34 | disposition home or self-care (01) | LOC: BICMAMMO 11:33 | PROVIDERS: ATTEND Internal Medicine | DX: Z12.31 Encounter for screening mammogram for malignant neoplasm of breast (principal); Z95.2 Presence of prosthetic heart valve | CPT/HCPCS: 77063; 77067 ==

== ENCOUNTER 2021-11-02 13:46 | Outpatient (CLI) | payer MEDICARE, OTHER ==
[2021-11-02 15:19] LABS: #Eosinphils 0.2 10x3/uL (0.0-0.5); #Monocytes 0.6 10x3/uL (0.0-1.1); #Neutrophils 2.5 10x3/uL (1.5-8.4); %Basophils 0.5 % (0.0-2.0); %Eosinophils 2.7 % (0.0-6.0); %Lymphocytes 41.3 % (18.0-47.0); %Monocytes 10.4 % (0.0-10.0); %Neutrophils 44.6 % (40.0-75.0); Hemoglobin 12.4 g/dL (12.0-15.5); Mean Corpuscular Hemoglobin 29.2 pg (27.0-33.0); Mean Corpuscular Volume 88.5 fl (81.6-98.3); Mean Platelet Volume 11.2 fl (7.4-10.4); Platelet Count 165 10x3/uL (150-450); RBC Distribution Width 12.9 % (11.5-14.5); Red Blood Cell (RBC) Count 4.25 10x6/uL (3.90-5.03); White Blood Cell (WBC) Count 5.5 10x3/uL (3.5-10.5)
[2021-11-02 15:26] LABS: INR-International Normal Ratio 0.9; Prothrombin Time 10.2 sec (9.5-12.1)
[2021-11-02 15:29] LABS: Anion Gap 17 mmol/L (10-20); BUN (Urea Nitrogen) 8 mg/dL (9.8-20.1); Calc. Creatinine Clearance 0 mL/min (70-130); Calcium 9.5 mg/dL (7.8-10.44); Carbon Dioxide 30 mmol/L (23-31); Chloride 101 mmol/L (98-107); Glucose 87 mg/dL (83-110); Potassium 3.7 mmol/L (3.5-5.1); Sodium 144 mmol/L (136-145)
[2021-11-03 00:54] LABS: SARS-CoV-2 PCR by NAA Not Detected (NotDetected)
== END 2021-11-02 13:47 | disposition home or self-care (01) ==
LOC: LABBT 13:46
PROVIDERS: ATTEND Orthopaedic Surgery Hand Surgery
DX: Z01.812 Encounter for preprocedural laboratory examination (principal); M16.11 Unilateral primary osteoarthritis, right hip; Z20.822 Contact with and (suspected) exposure to COVID-19
CPT/HCPCS: 80048; 85025; 85610; 87081; U0003; U0005

== ENCOUNTER 2021-11-06 05:28 | Observation (INO) | payer MEDICARE, OTHER ==
[2021-11-03 09:15] VITALS: BMI 28.8
[2021-11-06] MEDS ORDERED: Tranexamic Acid 1,000 MG/10 ML VIAL ONE (05:57)
[2021-11-06] MEDS ORDERED: Sodium Chloride 0.9% 100 ML ONE ×2 (05:57→06:49)
[2021-11-06] MEDS ORDERED: Propofol 1,000 MG/100 ML VIAL IV ONE (06:25)
[2021-11-06] MEDS ORDERED: CEFAZOLIN 2 GM VIAL ONE (06:49)
[2021-11-06] MEDS ORDERED: Fentanyl 100 MCG/2 ML VIAL ONE (06:52)
[2021-11-06] MEDS ORDERED: Midazolam HCl 2 mg/2 ml Vial ONE (06:52)
[2021-11-06] MEDS ORDERED: Promethazine HCl 25 MG/ML VIAL IM PRN ×2 (06:56→08:55)
[2021-11-06] MEDS ORDERED: diphenhydrAMINE 25 MG CAP PO PRN (06:56)
[2021-11-06] MEDS ORDERED: Ondansetron PF 4 MG/2 ML Vial IVP PRN (06:56)
[2021-11-06] MEDS ORDERED: Zolpidem Tartrate 5 MG TAB PO PRN (06:56)
[2021-11-06] MEDS ORDERED: Dicyclomine 10 MG CAP PO PRN (06:57)
[2021-11-06] MEDS ORDERED: cloNIDine 0.1 MG TAB PO PRN (06:57)
[2021-11-06] MEDS ORDERED: Furosemide 40 MG TAB PO PRN ×2 (06:57→07:18)
[2021-11-06] MEDS ORDERED: Non-Formulary Item 1 EACH (Albuterol Sulfate Hfa (Or) 200 PUFF Inh) INH PRN (06:57)
[2021-11-06] MEDS ORDERED: PHENYLEPHRINE-NS 100 MCG/ML 10 ML SYRINGE ONE (07:00)
[2021-11-06] MEDS ORDERED: ceFAZolin 2 GM/Dextrose 50 ML 2 GM in Premix Bag 1 BAG IVPB SCH (07:00)
[2021-11-06] MEDS ORDERED: Ondansetron PF 4 MG/2 ML Vial ONE (07:00)
[2021-11-06] MEDS ORDERED: PROPOFOL 200 MG/20 ML VIAL ONE (07:00)
[2021-11-06] MEDS ORDERED: Bupivacaine HCl 0.5%/Epinephrine 1:200,000/PF 30 ml Vial ONE (07:00)
[2021-11-06] MEDS ORDERED: ePHEDrine 50 MG/ML VIAL ONE (07:00)
[2021-11-06] MEDS ORDERED: Albuterol 200 PUFF (6.7GM INHALER) INH PRN (07:19)
[2021-11-06] MEDS ORDERED: Non-Formulary Item 1 EACH (Linaclotide [Linzess] 145 MCG Capsule) PO SCH (07:30)
[2021-11-06] MEDS ORDERED: Bupivacaine PF 0.5% 30 ML VIAL ONE (07:41)
[2021-11-06] MEDS ORDERED: fentaNYL Citrate/PF 100 MCG/2 ML SYRINGE ONE (07:57)
[2021-11-06] MEDS ORDERED: Promethazine HCl 25 MG/ML VIAL IVPB PRN (08:55)
[2021-11-06] MEDS ORDERED: Ondansetron HCl/PF 4 MG/2 ML Vial IVP PRN (08:55)
[2021-11-06] MEDS ORDERED: CANDESARTAN CILEXETIL 16 MG PO SCH (09:00)
[2021-11-06] MEDS ORDERED: Modafinil 100 MG TAB PO SCH (09:00)
[2021-11-06] MEDS ORDERED: MODAFINIL 200 MG PO SCH (09:00)
[2021-11-06] MEDS ORDERED: Non-Formulary Item 1 EACH (Esomeprazole Magnesium [Nexium] 40 MG Capsule.Dr) PO SCH (09:00)
[2021-11-06] MEDS ORDERED: Non-Formulary Item 1 EACH (Potassium Chloride [Potassium Chloride] 10 MEQ Capsule.Er) PO SCH (09:00)
[2021-11-06] MEDS: Losartan 25 MG TAB PO SCH (10:50)
[2021-11-06] MEDS: Aspirin 81 mg Enteric Coated Tablet PO SCH ×2 (10:50→22:10)
[2021-11-06] MEDS: DULoxetine 60 MG CAP PO SCH ×2 (10:51→22:11)
[2021-11-06] MEDS: Furosemide 40 MG TAB PO SCH (10:51)
[2021-11-06] MEDS: HYDROcodone/Acetaminophen 10/325 mg Tablet PO PRN ×3 (10:51→22:11)
[2021-11-06] MEDS: Fentanyl 100 MCG/2 ML VIAL SLOW IVP PRN ×2 (11:30→13:03)
[2021-11-06] MEDS: Multivitamin W/ Minerals 1 TAB PO SCH (13:05)
[2021-11-06] MEDS: Senokot S 8.6-50 MG TAB PO SCH ×2 (13:05→22:09)
[2021-11-06] MEDS: CEFAZOLIN 2 GM in Sodium Chloride 0.9% 100 ML IVPB SCH ×2 (14:21→22:10)
[2021-11-06] MEDS: Potassium Chloride 10 MEQ TAB PO SCH (14:21)
[2021-11-06] MEDS: Acetaminophen 325 MG TAB PO PRN (15:38)
[2021-11-06] MEDS: traMADol HCl 50 MG TAB PO PRN (15:39)
[2021-11-06] MEDS: Citrucel 500 MG TAB PO SCH ×2 (15:41→23:25)
[2021-11-06] MEDS: Sodium Chloride 0.9% 1,000 ML IV SCH ×2 (15:42)
[2021-11-06] MEDS: Ferrous Gluconate 324 MG TAB PO SCH ×2 (15:42→22:08)
[2021-11-06] MEDS: LINZESS 72 MCG PO SCH (19:41)
[2021-11-06] MEDS ORDERED: TRAMADOL HCL 200 MG PO SCH ×3 (21:00)
[2021-11-06] MEDS ORDERED: Non-Formulary Item 1 EACH (Metoprolol Succinate [Toprol Xl] 200 MG Tab.Er.24h) PO SCH (21:00)
[2021-11-06] MEDS: traZODone HCl 50 MG TAB PO SCH (22:11)
[2021-11-06] MEDS: Rosuvastatin 20 MG TAB PO SCH (22:11)
[2021-11-06] MEDS: Amlodipine 5 MG TAB PO SCH (22:11)
[2021-11-06] MEDS: ESOMEPRAZOLE PO SCH (22:12)
[2021-11-07] MEDS: Sodium Chloride 0.9% 1,000 ML IV SCH ×3 (01:57→22:29)
[2021-11-07 05:34] LABS: Hemoglobin 11.4 g/dL (12.0-16.0); Mean Corpuscular HGB CONC 32.2 g/dL (32.0-36.0); Mean Corpuscular Volume 93.2 fL (78.0-98.0); Mean Platelet Volume 8.9 fL (7.4-10.4); Platelet Count 139 thou/uL (130-400); RBC Distribution Width 12.3 % (11.5-14.5); Red Blood Cell (RBC) Count 3.81 mill/uL (4.20-5.40); White Blood Cell (WBC) Count 6.8 thou/uL (4.8-10.8)
[2021-11-07] MEDS: LINZESS 72 MCG PO SCH (06:49)
[2021-11-07] MEDS: traMADol HCl 50 MG TAB PO PRN ×3 (06:50→21:08)
[2021-11-07] MEDS: Acetaminophen 325 MG TAB PO PRN ×3 (06:50→21:08)
[2021-11-07] MEDS: ESOMEPRAZOLE PO SCH ×2 (07:59→21:10)
[2021-11-07] MEDS: Potassium Chloride 10 MEQ TAB PO SCH (08:00)
[2021-11-07] MEDS: DULoxetine 60 MG CAP PO SCH ×2 (08:01→21:09)
[2021-11-07] MEDS: Furosemide 40 MG TAB PO SCH (08:01)
[2021-11-07] MEDS: Senokot S 8.6-50 MG TAB PO SCH ×2 (08:01→21:09)
[2021-11-07] MEDS: Aspirin 81 mg Enteric Coated Tablet PO SCH ×2 (08:01→21:08)
[2021-11-07] MEDS: Losartan 25 MG TAB PO SCH (08:02)
[2021-11-07] MEDS: Multivitamin W/ Minerals 1 TAB PO SCH (08:02)
[2021-11-07] MEDS: Ferrous Gluconate 324 MG TAB PO SCH ×2 (08:02→21:09)
[2021-11-07] MEDS: Citrucel 500 MG TAB PO SCH ×2 (08:02→21:09)
[2021-11-07] MEDS: Modafinil 100 MG TAB PO SCH ×2 (08:08→13:35)
[2021-11-07] MEDS ORDERED: LINACLOTIDE 145 MCG PO SCH (09:00)
[2021-11-07] MEDS: HYDROcodone/Acetaminophen 10/325 mg Tablet PO PRN (09:59)
[2021-11-07] MEDS: traZODone HCl 50 MG TAB PO SCH (21:08)
[2021-11-07] MEDS: Rosuvastatin 20 MG TAB PO SCH (21:09)
[2021-11-07] MEDS: Amlodipine 5 MG TAB PO SCH (21:09)
[2021-11-08] MEDS: HYDROcodone/Acetaminophen 10/325 mg Tablet PO PRN ×2 (06:55→12:04)
[2021-11-08] MEDS: LINZESS 72 MCG PO SCH (08:32)
[2021-11-08] MEDS: DULoxetine 60 MG CAP PO SCH (08:33)
[2021-11-08] MEDS: Senokot S 8.6-50 MG TAB PO SCH (08:33)
[2021-11-08] MEDS: Aspirin 81 mg Enteric Coated Tablet PO SCH (08:33)
[2021-11-08] MEDS: Ferrous Gluconate 324 MG TAB PO SCH (08:33)
[2021-11-08] MEDS: Potassium Chloride 10 MEQ TAB PO SCH (08:35)
[2021-11-08] MEDS: ESOMEPRAZOLE PO SCH (08:35)
[2021-11-08] MEDS: Losartan 25 MG TAB PO SCH (08:35)
[2021-11-08] MEDS: Furosemide 40 MG TAB PO SCH (08:35)
[2021-11-08] MEDS: Multivitamin W/ Minerals 1 TAB PO SCH (08:36)
[2021-11-08] MEDS: Citrucel 500 MG TAB PO SCH (08:36)
[2021-11-08] MEDS: Modafinil 100 MG TAB PO SCH ×2 (09:51→14:21)
[2021-11-08] MEDS: Sodium Chloride 0.9% 1,000 ML IV SCH (09:52)
[2021-11-08 11:56] VITALS: BP 110/69; TEMP 98.5
== END 2021-11-08 14:21 | disposition home or self-care (01) ==
LOC: SDC 05:28 → SURG B 06:56 → SDC 11-07 06:56 → SURG B 11-07 08:54 → SDC 11-07 10:22 → SURG B 11-07 10:22
PROVIDERS: ADMIT Orthopaedic Surgery; ATTEND Orthopaedic Surgery
PROC: 0SR904A Replacement of Right Hip Joint with Ceramic on Polyethylene Synthetic Substitute, Uncemented, Open Approach (ICD-10-PCS; principal; 2021-11-06)
PROC: 3E0T3BZ Introduction of Anesthetic Agent into Peripheral Nerves and Plexi, Percutaneous Approach (ICD-10-PCS; 2021-11-06)
DX: M16.11 Unilateral primary osteoarthritis, right hip (principal); I10 Essential (primary) hypertension; E78.5 Hyperlipidemia, unspecified; K21.9 Gastro-esophageal reflux disease without esophagitis; E78.00 Pure hypercholesterolemia, unspecified; J44.9 Chronic obstructive pulmonary disease, unspecified; K59.09 Other constipation; G47.33 Obstructive sleep apnea (adult) (pediatric); Z79.02 Long term (current) use of antithrombotics/antiplatelets; Z79.899 Other long term (current) drug therapy; Z88.1 Allergy status to other antibiotic agents; Z96.642 Presence of left artificial hip joint
CPT/HCPCS: 27130; 64999; 73502; 85027; 96374; 97110 ×2; 97116 ×3; 97139 ×4; 97530 ×2; 97535; C1776; G0378 ×2; 36415; J2250; J2405; J2704; J3010; J3490; J7050; S0020

== ENCOUNTER 2022-01-16 18:03 | Emergency (ER) | payer MEDICARE, OTHER ==
[2022-01-16 18:27] LABS: #Lymphocytes 1.2 thou/uL (1.20-3.40); #Monocytes 0.1 thou/uL (0.11-0.59); #Neutrophils 3.6 thou/uL (1.40-6.50); %Basophils 0.5 % (0.0-1.0); %Eosinophils 0.2 % (0.0-10.0); %Lymphocytes 24.7 % (21.0-51.0); %Monocytes 1.7 % (0.0-10.0); Hemoglobin 13.4 g/dL (12.0-16.0); Mean Corpuscular HGB CONC 32.1 g/dL (32.0-36.0); Mean Corpuscular Hemoglobin 29.2 pg (27.0-31.0); Mean Platelet Volume 9.2 fL (7.4-10.4); Platelet Count 185 thou/uL (130-400); Red Blood Cell (RBC) Count 4.58 mill/uL (4.20-5.40); White Blood Cell (WBC) Count 4.9 thou/uL (4.8-10.8)
[2022-01-16 18:52] LABS: ALT (SGPT) 8 U/L (8-55); AST (SGOT) 15 U/L (5-34); Albumin 4.4 g/dL (3.4-4.8); Alkaline Phosphatase 213 U/L (40-110); Anion Gap 17 mmol/L (10-20); BUN (Urea Nitrogen) 10 mg/dL (9.8-20.1); Bilirubin, Total 0.3 mg/dL (0.2-1.2); Calc. Creatinine Clearance 0 mL/min (70-130); Calcium 9.8 mg/dL (7.8-10.44); Carbon Dioxide 26 mmol/L (23-31); Chloride 104 mmol/L (98-107); Estimated GFR 61; Globulin 3.7 g/dL (2.4-3.5); Glucose 150 mg/dL (83-110); Potassium 3.6 mmol/L (3.5-5.1); Protein, Total 8.1 g/dL (5.8-8.1); Sodium 143 mmol/L (136-145)
[2022-01-16] MEDS ORDERED: Metoprolol Tartrate 5 MG/5 ML VIAL ONE (19:29)
[2022-01-16 22:03] LABS: Troponin I 0.018 ng/mL (< 0.028)
== END 2022-01-16 22:33 | disposition home or self-care (01) ==
LOC: ERS 18:03
DX: R00.2 Palpitations (principal); R06.02 Shortness of breath; E78.5 Hyperlipidemia, unspecified; I10 Essential (primary) hypertension; K21.9 Gastro-esophageal reflux disease without esophagitis; G47.33 Obstructive sleep apnea (adult) (pediatric); M81.0 Age-related osteoporosis without current pathological fracture; Z79.899 Other long term (current) drug therapy
CPT/HCPCS: 36415; 71045; 80053; 83880; 84443; 84484; 85025; 93005; 94760; 96374

== ENCOUNTER 2023-05-01 07:30 | Outpatient (CLI) | payer MEDICARE, OTHER | END 2023-05-01 07:31 | disposition home or self-care (01) | LOC: BICULT 07:30 | PROVIDERS: ATTEND Family Medicine | DX: E04.9 Nontoxic goiter, unspecified (principal); E04.2 Nontoxic multinodular goiter | CPT/HCPCS: 76536 ==

== ENCOUNTER 2023-06-28 08:15 | Outpatient (CLI) | payer MEDICARE, OTHER | END 2023-06-28 08:16 | disposition home or self-care (01) | LOC: BICMAMMO 08:15 | PROVIDERS: ATTEND Family Medicine | DX: Z13.820 Encounter for screening for osteoporosis (principal); N95.9 Unspecified menopausal and perimenopausal disorder; M85.89 Other specified disorders of bone density and structure, multiple sites | CPT/HCPCS: 77080 ==

== ENCOUNTER 2023-11-07 08:11 | Outpatient (CLI) | payer MEDICARE, OTHER ==
[2023-11-07] MEDS ORDERED: E-Z-HD 98% W/W 340GM BOT (x-ray ONLY) ONE ×2 (08:32→08:36)
[2023-11-07] MEDS ORDERED: Barium Sulfate 96% 176 GM BOT (xray ONLY) ONE (08:36)
== END 2023-11-07 08:12 | disposition home or self-care (01) ==
LOC: RAD 08:11
PROVIDERS: ATTEND Internal Medicine
DX: K21.9 Gastro-esophageal reflux disease without esophagitis (principal); R13.19 Other dysphagia
CPT/HCPCS: 74220